=== PATIENT | male | born 1940 | race Caucasian/White ===

== ENCOUNTER 2024-10-04 13:20 | Emergency (ER) | payer MEDICARE, OTHER, SELFPAY ==
[2024-10-04 13:27] VITALS: BP 160/106
[2024-10-04 13:38] LABS: Glucose - Point of Care 113 mg/dl (70-99)
[2024-10-04 13:51] LABS: Hematocrit 49.8 % (39.0-52.0); Hemoglobin 16.2 g/dL (13.0-18.0); Mean Corp Hgb Conc. 32.5 g/dL (33.0-37.0); Mean Corpuscular Volume 89.6 fL (80.0-94.0); Nucleated Red Blood Cells % 0 % (-); Platelet Count 239 10^3/uL (130-400); Red Cell Dist. Width 14.1 % (11.5-14.5)
[2024-10-04 14:16] LABS: ALT (SGPT) 15 U/L (0-50); AST (SGOT) 20 U/L (17-59); Albumin 4.5 g/dl (3.5-5.0); Alkaline Phosphatase 83 U/L (38-126); Blood Urea Nitrogen 23 mg/dl (9-20); Calcium 9.0 mg/dl (8.4-10.2); Carbon Dioxide 25 mmol/L (22-30); Chloride 106 mmol/L (98-107); Glucose 111 mg/dl (70-99); Potassium 4.3 mmol/L (3.5-5.1); Sodium 140 mmol/L (135-145); Total Protein 8.2 g/dl (6.3-8.2); eGFR > 60.00
[2024-10-04 14:23] LABS: Troponin I < 0.012 ng/ml
[2024-10-04 14:27] VITALS: BP 148/64
[2024-10-04 14:43] VITALS: BMI 34.6
[2024-10-04 14:54] VITALS: BP 148/74
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
[2024-10-04 15:00] VITALS: BP 106/73
[2024-10-04 15:23] LABS: Urine Character Clear (Clear)
[2024-10-04 15:56] LABS: Urine Red Blood Cell 0-2 /HPF (0-2); Urine Squamous Cell 0-2 /LPF (Few)
== END 2024-10-04 16:35 | disposition home or self-care (01) ==
LOC: EMR 13:20
PROVIDERS: Emergency Medicine; EMERGENCY PHYSICIAN Emergency Medicine; FAMILY PHYSICIAN Family Medicine
DX: R42 Dizziness and giddiness (principal); H43.399 Other vitreous opacities, unspecified eye; E78.00 Pure hypercholesterolemia, unspecified; I10 Essential (primary) hypertension; E11.9 Type 2 diabetes mellitus without complications; Z18.89 Other specified retained foreign body fragments; Z91.018 Allergy to other foods
CPT/HCPCS: 99285; 94760; 70450; 80053; 81003; 81015; 82962; 84484; 85025; 93005